=== PATIENT | male | born 1990 | race Hispanic/Latino ===

== ENCOUNTER 2018-01-09 18:19 | Emergency (ER) | payer BC ==
[~2018-01-09] VITALS: Ht 170.2 cm; Wt 98.9 kg
[2018-01-09] MEDS ORDERED: SODIUM CHLORIDE 0.9% 1000ML 1,000 ML ONE (19:15)
[2018-01-09] MEDS ORDERED: ONDANSETRON HCL 4 MG ORAL DISINTEGRATING TAB PO ONE (19:15)
[2018-01-09 21:12] VITALS: BP 115/60
== END 2018-01-09 20:40 | disposition home or self-care (01) ==
LOC: FSED 18:19
DX: R11.2 Nausea with vomiting, unspecified (principal); T67.2XXA Heat cramp, initial encounter; T67.3XXA Heat exhaustion, anhydrotic, initial encounter
CPT/HCPCS: 80053; 85025; 99283; J7030

== ENCOUNTER 2018-08-11 16:52 | Emergency (ER) | payer BC ==
[~2018-08-11] VITALS: Ht 170.2 cm; Wt 93.0 kg
--- OUTSIDE RECORDS SUMMARY | 2018-08-11 16:55 | XMS REPORT | Continuity of Care Document ---
Author Author [facility] Interface Address Unknown Phone Unavailable Problems Problem Status Onset Date Classification Date Reported Comments Source Body mass index 30+ - obesity 10/24/2017 Diagnosis 10/24/2017 [facility] Elevated blood-pressure reading without diagnosis of hypertension 10/24/2017 Diagnosis 10/24/2017 [facility] Gastroenteritis 10/24/2017 Diagnosis 10/24/2017 [facility] Headache 03/31/2017 Diagnosis 04/03/2017 [facility] Medications Medication Details Route Status Patient Instructions Ordering Provider Order Date Source Ondansetron 4 MG Disintegrating Oral Tablet ondansetron 4 mg disintegrating tablet Take 2 tablets every 8 hours by oral route as needed for 2 days. Active [facility] Hyoscyamine Sulfate 0.125 MG Sublingual Tablet [Levsin] Levsin/SL 0.[address] 1 tablet every 4 hours by sublingual route as needed for 2 days. Active [facility] Ondansetron 8 MG Oral Tablet ondansetron HCl 8 mg tablet Take 1 tablet every 8 hours by oral route as needed for 2 days. Active [facility] Allergies, Adverse Reactions, Alerts Substance Category Reaction Severity Reaction type Status Date Reported Comments Source Immunizations Immunization Date Given Site Status Last Updated Comments Source Results Order Name Results Value Reference Range Date Interpretation Comments Source Influenza A negative 04/03/2017 [facility] Influenza B negative 04/03/2017 [facility] Influenza A negative 03/31/2017 [facility] Influenza B negative 03/31/2017 [facility] Vital Signs Vital Sign Value Date Comments Source Diastolic (mm Hg) 78 10/24/2017 [facility] Height 67 10/24/2017 [facility] Systolic (mm Hg) 122 10/24/2017 [facility] Weight 220 10/24/2017 [facility] Diastolic (mm Hg) 74 04/03/2017 [facility] Height 67 04/03/2017 [facility] Systolic (mm Hg) 120 04/03/2017 [facility] Weight 235 04/03/2017 [facility] Diastolic (mm Hg) 74 03/31/2017 [facility] Height 67 03/31/2017 [facility] Systolic (mm Hg) 122 03/31/2017 [facility] Weight 235 03/31/2017 [facility] Encounters Location Location Details Encounter Type Encounter Number Reason For Visit Attending Provider ADM Date DC Date Status Source [place] - [facility] - [id number] Olsen, COMPUTER SYSTEMS SUPPORT SPECIALIST-C: [address] [place] [address], Ph. [id number] Enriqueta Olsen 03/31/2017 [facility] [place] [facility] - [id number] Olsen, COMPUTER SYSTEMS SUPPORT SPECIALIST-C: [address] [place] [address], Ph. [id number] Enriqueta Olsen 03/31/2017 [facility] [place] [facility] - [id number] Olsen, COMPUTER SYSTEMS SUPPORT SPECIALIST-C: [address] [place] [address], Ph. [id number] Enriqueta Olsen 04/03/2017 [facility] [place] [facility] - [id number] Vera Rozina, CLINICAL OPERATIONS MANAGER: [address] [place] [address], Ph. [id number] Lily Handy 10/24/2017 [facility] Procedures Procedure Code Date Perfomer Comments Source
--- OUTSIDE RECORDS SUMMARY | 2018-08-11 16:55 | XMS REPORT | Encounter Summary ---
Author Organization Unknown Address [address] [place] [address] Phone [phone] Reason for Visit Medical Complaint Instructions 1. Gastroenteritis gastroenteritis: care instructions Levsin/SL 0.125 mg sublingual tablet ondansetron HCl 8 mg tablet rapid flu (A+B) 2. Headache headache: care instructions 3. Body mass index 30+ - obesity Discussion Note Pt is in NAD; Verbalizes understanding of all instructions with no questions at this time. Plan of Care Patient Instructions Stay hydrated, eat a liquid diet for the first four hours. Stay away from fried and spicy foods until symptoms resolve. If you do experience improvement in your symptoms within the next four hours, advance yourself to a carbohydrate-rich diet such as white rice, white bread, and crackers. Within the next four hours thereafter, you can advance to lean meats such as chicken, fish, and turkey. Four hours thereafter if symptoms do improve, then advance to a regular diet. Take ondansetron for nausea and vomiting and levsin for stomach pain/cramps. Follow up with your PCP within 2-3 should symptoms worsen as discussed. In case of an emergency call 911 or go to nearest ER. Reminders Provider Appointments None recorded. Lab Rapid Flu (A+B) 03/31/2017 [facility] Referral None recorded. Procedures None recorded. Surgeries None recorded. Imaging None recorded. Medications Name Start Date Levsin/SL 0.[address] 1 tablet every 4 hours by sublingual route as needed for 2 days. ondansetron HCl 8 mg tablet Take 1 tablet every 8 hours by oral route as needed for 2 days. Medications Administered None recorded. Vitals Height Weight BMI Blood Pressure 5 ft 7 in 235 lbs 36.8 kg/m2 122/74 mm[Hg] Lab Results Date Name Specimen Result Interpretation Description Value Range Status Address Rapid Flu (A+B) Influenza a negative [facility]: [address] [place] [address] Influenza B negative [facility]: [address] [place] [address] Allergies Code Code System Name Reaction Severity Status Onset NKDA Problems None recorded. Procedures None recorded. Vaccine List None recorded. Social History Smoking Status Never Smoker Past Encounters 03/31/2017 Gastroenteritis; Headache; Body Mass Index 30+ - Obesity Enriqueta Olsen, [facility]-C: [address] [facility], [place] [address], Ph. History of Present Illness Sudwpo-Ramxryxx-Luzyglzv / Abdominal Pain Reported By: Patient HPI: Quality: intermittent. Severity: moderate. Duration: present for < 1 week, symptoms last for how long?. Onset/Timing: worse with meals, gradual onset, 1-3 times a day. Context: no one else with similar symptoms, no recent camping, no recent picnic, no possible food sources, no recent travel. Alleviating factors: better with fasting. Aggravating factors: eating. Associated Symptoms: no excess gas, no fever/chills, no rash, no joint pain, no weight loss, no heartburn, no blood in stool, no mucus in stool, no black or tarry stools, no weakness, no nutrient deficiency, no feeling of fullness/mass in throat, no muscle aches, no bitter taste in the mouth, no difficulty swallowing (dysphagia), abdominal pain, nausea, vomiting, cramping, bloating, headache Headache Reported By: Patient HPI: Location: frontal. Quality: dull. Severity: mild, pain level 2/10. Duration: intermittent. Onset/Timing: better, gradual. Context: not related to trauma. Modifying factors: OTC medication, sleep, rest. Associated Symptoms: no fever/chills, no muscle aches, no sensitivity to light, tearing/watery eyes, no confusion, no slurred speech, no preceeding aura, no double vision, normal feeling/sensation, no motor paralysis, no dizziness, no sleep disturbances, no nosebleeds, no hoarseness, no sore throat, no hearing loss, headache, nausea, vomiting; stomach pain Review of Systems:ROS as noted in the HPI Review of Systems Basic Reported By: Patient Physical Exam Adult Basic, Adult Female Complete, Adult Male Complete Reported By: Patient Constitutional: General Appearance: obese. Level of Distress: NAD. Ambulation: ambulating normally Psychiatric: Mental Status: active and alert. Orientation: to time, to place, to person Eyes: Lids and Conjunctivae: non-injected, no discharge, no pallor. Pupils: PERRLA. Corneas: grossly intact. EOM: EOMI. Lens: clear. Vision: peripheral vision grossly intact Csj-Lyae-Bvfcn-Throat: Nose: no lesions on external nose, nares patent, no septal deviation, nasal passages clear, no sinus tenderness, nasal discharge--rhinorrhea. Lips, Teeth, and Gums: no mouth or lip ulcers, no bleedin g gums, normal dentition. Oropharynx: moist mucous membranes, no erythema, no exudates, tonsils not enlarged Neck: Neck: supple. Lymph Nodes: no cervical LAD Lungs: Respiratory effort: no dyspnea, no tachypnea, no use of accessory muscles, no intercostal retractions. Auscultation: breath sounds normal, good air movement Cardiovascular: Heart Auscultation: RRR, no murmurs Neurologic: Gait and Station: normal gait, normal station. Cranial Nerves: grossly intact. Reflexes: DTRs 2+ bilaterally throughout Abdomen: Bowel Sounds: high-pitched. Inspection and Palpation: soft, non-distended, no tenderness, no guarding, no rebound tenderness, no masses, no CVA tenderness. Liver: non-tender, no hepatomegaly. Spleen: non-tender, no splenomegaly. Hernia: none palpable
--- OUTSIDE RECORDS SUMMARY | 2018-08-11 16:55 | XMS REPORT | Encounter Summary ---
Author Organization Unknown Address [address] [place] [address] Phone [phone] Reason for Visit Medical Complaint Instructions 1. Gastroenteritis gastroenteritis: care instructions Discussion Note Pt is in NAD; Verbalizes [...] then advance to a regular diet. Take over the counter imodium for diarrhea as per package insert. Follow up with a PCP within 2-3 should symptoms worsen as discussed. In case of an emergency call 911 or go to nearest ER. Reminders Provider Appointments None recorded. Lab None recorded. Referral None recorded. Procedures None recorded. Surgeries [...] ft 7 in 235 lbs 36.8 kg/m2 120/74 mm[Hg] Lab Results Date Name Specimen Result Interpretation Description Value Range Status Address Rapid Flu (A+B) Influenza a negative [facility]: [address] [place] [address] Influenza B negative [facility]: [address] [place] [address] Allergies Code Code System Name Reaction Severity Status Onset NKDA Problems None recorded. Procedures None recorded. Vaccine List None recorded. Social History Smoking Status Never Smoker Past Encounters 04/03/2017 Gastroenteritis [facility] Stevenson-C: [address] [place] [address], Ph. 03/31/2017 Gastroenteritis; Headache; Body Mass Index 30+ - Obesity Enriqueta Olsen, [facility]-C: [address] [place] [address], Ph. History of Present Illness Daovse-Rnzkbvlm-Qtqhqyvi / Abdominal Pain Reported By: Patient HPI: Quality: watery, intermittent. Severity: mild. Duration: present for < 1 week, symptoms last for how long?. Onset/Timing: worse with meals, gradual onset, 1-3 times a day. Context: no one else with similar symptoms, no recent camping, no recent picnic, no possible food sources, no recent travel; Pt presented on 03/31/17 with nausea, vomiting, stomach pain, and headache but these have resolved per pt. Last influenza test on 03/31/17 was negative. Alleviating factors: better with fasting. Aggravating factors: eating. Associated Symptoms: no abdominal pain, no excess gas, no fever/chills, no rash, no joint pain, no weight loss, no nausea, no vomiting, no heartburn, no blood in stool, no mucus in stool, no black or tarry stools, no weakness, no nutrient deficiency, no feeling of fullness/mass in throat, no muscle aches, no bitter taste in the mouth, no difficulty swallowing (dysphagia); watery diarrhea Review of Systems:ROS as noted in the HPI Review of Systems Basic Reported By: Patient Physical Exam Adult Basic, Adult Female Complete, Adult Male Complete Reported By: Patient Constitutional: General Appearance: healthy-appearing, well-nourished, well-developed. Level of Distress: NAD. Ambulation: ambulating normally Psychiatric: Mental Status: active and alert. Orientation: to time, to place, to person Eyes: Lids and Conjunctivae: non-injected, no pallor Gsh-Yqve-Nczqm-Throat: Lips, Teeth, and Gums: no mouth or lip ulcers, no bleeding gums, normal dentition. Oropharynx: moist mucous membranes, no erythema, no exudates, tonsils not enlarged Neck: Neck: supple. Lymph Nodes: no cervical LAD Lungs: Respiratory effort: no dyspnea, no tachypnea, no use of accessory muscles, no intercostal retractions. Auscultation: breath sounds normal Cardiovascular: Heart Auscultation: RRR, no murmurs Abdomen: Bowel Sounds: normal. Inspection and Palpation: soft, non-distended, no tenderness, no guarding, no rebound tenderness, no masses, no CVA tenderness. Liver: non-tender, no hepatomegaly. Spleen: non-tender, no splenomegaly. Hernia: none palpable
--- OUTSIDE RECORDS SUMMARY | 2018-08-11 16:56 | XMS REPORT | Encounter Summary ---
Author Organization Unknown Address [address] [place] [address] Phone [phone] Reason for Visit Medical Complaint Instructions 1. Gastroenteritis gastroenteritis: care instructions ondansetron 4 mg disintegrating tablet 2. Elevated blood-pressure reading without diagnosis of hypertension elevated blood pressure: care instructions 3. Body mass index 30+ - obesity body mass index: care instructions A healthy lifestyle: care instructions Discussion Note: None recorded. Plan of Care Reminders Provider Appointments None recorded. Lab None recorded. Referral None recorded. Procedures None recorded. Surgeries None recorded. Imaging None recorded. Medications Name Start Date ondansetron 4 mg disintegrating tablet Take 2 tablets every 8 hours by oral route as needed for 2 days. Medications Administered None recorded. Vitals Height Weight BMI Blood Pressure 5 ft 7 in 220 lbs 34.5 kg/m2 122/78 mm[Hg] Lab Results None recorded. Allergies Code Code System Name Reaction Severity Status Onset NKDA Problems None recorded. Procedures None recorded. Vaccine List None recorded. Social History Smoking Status Never Smoker Past Encounters 10/24/2017 Gastroenteritis; Elevated Blood-pressure Reading without Diagnosis of Hypertension; Body Mass Index 30+ - Obesity Lily Handy PUBLIC RELATIONS COORDINATOR: [address] [place] [address], Ph. History of Present Illness Akahkv-Vfrodofi-Uqzlbbxc / Abdominal Pain Reported By: Patient HPI: Quality: watery, frequent. Severity: causing awakening from sleep. Duration: present for < 1 week. Onset/Timing: worse in the morning, worse in the evening, worse in the afternoon, worse with meals, started after an event, abrupt onset, 4-10 times a day. Context: no one else with similar symptoms, no recent camping, no recent picnic, no recent travel, possible food source, bowel movement frequency:, last bowel movement:, no well water. Aggravating factors: eating. Associated Symptoms: no excess gas, no fever/chills, no rash, no joint pain, no weight loss, no blood in stool, no mucus in stool, no black or tarry stools, no weakness, no nutrient deficiency, no headache, no feeling of fullness/mass in throat, no muscle aches, no bitter taste in the mouth, no difficulty swallowing (dysphagia), abdominal pain, nausea, vomiting, cramping Review of Systems:ROS as noted in the HPI Review of Systems Basic Reported By: Patient Physical Exam Adult Male Complete Reported By: Patient Constitutional: General Appearance: obese. Level of Distress: mild distress. Ambulation: ambulating normally Psychiatric: Mental Status: active and alert. Orientation: to time, to place, to person Lungs: Respiratory effort: no dyspnea. Auscultation: breath sounds normal, good air movement Cardiovascular: Heart Auscultation: RRR, no murmurs. Pulses including femoral / pedal: normal throughout Abdomen: Bowel Sounds: normal. Inspection and Palpation: soft, no tenderness, no guarding, no rebound tenderness, no masses, no CVA tenderness Musculoskeletal:: Motor Strength and Tone: normal, normal tone. Joints, Bones, and Muscles: normal movement of all extremities
[2018-08-11] MEDS ORDERED: IBUPROFEN 600 MG TAB PO ONE (17:30)
== END 2018-08-11 17:32 | disposition home or self-care (01) ==
LOC: FSED 16:52
DX: R50.9 Fever, unspecified (principal); R05 Cough; J11.1 Influenza due to unidentified influenza virus with other respiratory manifestations
CPT/HCPCS: 87400; 99283

== ENCOUNTER 2020-03-31 09:45 | Emergency (ER) | payer BC ==
[~2020-03-31] VITALS: Ht 170.2 cm; Wt 80.5 kg
[2020-03-31] MEDS ORDERED: PREDNISONE20 MG PO (11:09)
--- NOTE | 2020-03-31 11:09 | Emergency Department Note ---
History of Present Illnes History of Present Illness Chief Complaint: left ankle pain s/p inversion while playing basketball History of Present Illness This is a 29 year old male. was doing well prior to this. Historian: Patient Arrival Mode: Car History limited by: condition of the patient (normal) Photoengraver Required: No Onset (how long ago): hour(s) (1) Location: see above Quality: sharp Radiation: Reports non-radiation Severity: severe Onset quality: sudden Duration (how long): hour(s) (1) Timing of current episode: constant Progression: worsening Chronicity: new Context: Reports trauma/injury Relieving factors: rest Exacerbating factors: movement Associated symptoms: Reports denies other symptoms Treatments prior to arrival: none Past Medical/Family History Physician Review I have reviewed the patient's past medical and family history. Any updates have been documented here. Past Medical History Recent Fever: No Clinical Suspicion of Infectio: No New/Unexplained Change in Ment: No Past Medical History: None Past Surgical History: None Social History Smoking Cessation: Never Smoker Counseling Performed: No Alcohol Use: Social Any Illegal Drug Use: No TB Exposure/Symptoms: No Physically hurt or threatened: No Family History Family history of heart diseas: No Other Last Tetanus: UNK Any Pre-Existing Lines (PICC,: No Review of Systems Review of Systems Constitutional: Reports no symptoms EENTM: Reports no symptoms Cardiovascular: Reports no symptoms Respiratory: Reports no symptoms Gastrointestinal: Reports no symptoms Genitourinary: Reports no symptoms Musculoskeletal: Reports as per HPI Integumentary: Reports no symptoms Neurological: Reports no symptoms Psychological: Reports no symptoms Endocrine: Reports no symptoms Hematological/Lymphatic: Reports no symptoms Review of other systems: All other systems negative Physical Exam Related Data Allergies: Coded Allergies: No Known Allergies (Unverified , 01/09/18) Vital signs reviewed: Yes Physical Exam CONSTITUTIONAL Constitutional: Present well-developed, Present well-nourished HENT HENT: Present normocephalic, Present atraumatic, Present oropharynx clear/moist, Present nose normal HENT L/R: Present left ext ear normal, Present right ext ear normal EYES Eyes: Reports PERRL, Reports conjunctivae normal NECK Neck: Present ROM normal, Present supple PULMONARY Pulmonary: Present effort normal, Present breath sounds normal CARDIOVASCULAR Cardiovascular: Present regular rhythm, Present heart sounds normal, Present capillary refill normal, Present normal rate GASTROINTESTINAL Abdominal: Present soft, Present nontender, Present bowel sounds normal GENITOURINARY Genitourinary: Present exam deferred SKIN Skin: Present warm, Present dry MUSCULOSKELETAL Musculoskeletal: Present ROM normal, Present tenderness (left ankle), Present swelling (mild), Present other (+nvi) NEUROLOGICAL Neurological: Present alert, Present oriented x 3, Present no gross motor or sensory deficits PSYCHOLOGICAL Psychological: Present mood/affect normal, Present judgement normal Results Imaging Imaging results reviewed: Yes Impressions [place] [address] Patient Name: DELMA GAN MR #: [id number] : 1990 Age/Sex: 29/M Req #: [id number] Adm Physician: Ordered by: RAÚL WEINSTEIN Report #: [id number] Location: [facility] Room/Bed: Procedure: [id number] HOPD/ANKLE 3VIEW LT - HOPD Exam Date: 03/31/20 Exam Time: 1043 REPORT STATUS: Signed ANKLE 3VIEW LT - HOPD - 3 views HISTORY: Pain. COMPARISON: None available. FINDINGS: Bones/joints: No acute fracture or dislocation. No ankle joint effusion. Soft tissues: No focal soft tissue abnormality. IMPRESSION: No acute radiographic abnormality. Signed by: Jeff Brown MD on 03/31/2020 11:22 AM Dictated By: JEFF BROWN MD 21 Transcribed By: PEDRO on 03/31/201121 COPY TO: RAÚL WEINSTEIN~ Assessment & Plan Medical Decision Making MDM see below Assessment & Plan Final Impression: (1) Ankle sprain Depart Disposition: HOME, SELF-correction Meds Active Scripts Prednisone (PREDNISONE) 20 Mg Tab, 60 MG PO DAILY PRN for MODERATE PAIN (4-6), #15 TAB TAKE ALL 3 20 MG PILLS AT ONCE Prov:RAÚL WEINSTEIN 03/31/20 RAÚL WEINSTEIN Mar 31, 2020 11:09
[2020-03-31 11:21] VITALS: BP 121/59
--- NOTE | 2020-03-31 11:25 | Diagnostic Imaging Report ---
ANKLE 3VIEW LT - HOPD - 3 views HISTORY: Pain. COMPARISON: None available. FINDINGS: Bones/joints: No acute fracture or dislocation. No ankle joint effusion. Soft tissues: No focal soft tissue abnormality. IMPRESSION: No acute radiographic abnormality. Signed by: Sarah Mckinnon MD on 03/31/2020 11:22 AM
--- OUTSIDE RECORDS SUMMARY | 2020-04-05 18:20 | XMS REPORT | Continuity of Care Document ---
Author Author [facility] t Organization [facility] Address [address] [place] [address] Phone Unavailable Care Team Providers Care Nut Feeder Name Role Phone NO, PCP PCP Unavailable Vincenzo WEINSTEIN Attphys Unavailable Payers Payer Name Policy Type Policy Number Effective Date Expiration Date S michel [employer] [place] Ppo [id number] 2018 00:00:00 [facility] Problems This patient has no known problems. Allergies, Adverse Reactions, Alerts This patient has no known allergies or adverse reactions. Medications This patient has no known medications. Procedures This patient has no known procedures. Encounters Start Date/Time End Date/Time [facility] Type [facility] En[facility] ID Source 2019-05-23 22:00:00 2019-05-23 23:00:00 Departed Emergency Room [facility] [id number] [facility] 2019-01-19 15:29:00 2019-01-19 15:29:00 Emergency E [id number] 2018-08-11 16:52:00 2018-08-11 17:32:00 Departed Emergency Room [facility] [id number] [facility] 2018-01-09 18:19:00 2018-01-09 20:40:00 Departed Emergency Room [facility] [id number] [facility] Results Test Description Test Time Test Comments Results Result Comments Source [facility] 11:20:00 [facility] 1990 Sex: M [facility] [address] [address] Patient Name: DELMA GAN MR #: [id number] : 1990 Age/Sex: 29/M Req #: [id number] [facility] Physician: Ordered by: RAÚL WEINSTEIN Report #: [id number] Location: [facility] Room/Bed: Procedure: [id number] HOPD/ANKLE 3VIEW LT - HOPD Exam Date: 03/31/20 Exam Time: 1043 REPORT STATUS: Signed ANKLE 3VIEW LT - HOPD - 3 views HISTORY: Pain. COMPARISON: None available. FINDINGS: Bones/joints: No acute fracture or dislocation. No ankle joint effusion. Soft tissues: No focal soft tissue abnormality. IMPRESSION: No acute radiographic abnormality. Signed by: Jeff Brown MD on 03/31/2020 11:22 AM Dictated By: JEFF BROWN MD 21 Transcribed By: PEDRO on 03/31/201121 COPY TO: RAÚL WEINSTEIN
== END 2020-03-31 11:48 | disposition home or self-care (01) ==
LOC: FSED 09:58
DX: S93.402A Sprain of unspecified ligament of left ankle, initial encounter (principal); X50.1XXA Overexertion from prolonged static or awkward postures, initial encounter; Y93.67 Activity, basketball; Y92.310 Basketball court as the place of occurrence of the external cause
CPT/HCPCS: 99283

== ENCOUNTER 2021-02-19 10:27 | Emergency (ER) | payer SELFPAY ==
[~2021-02-19] VITALS: Ht 172.7 cm; Wt 84.9 kg
[~2021-02-19 10:27] MED LIST: PREDNISONE20 MG PO
[2021-02-19] MEDS ORDERED: AUGMENTIN 500-1 EACH PO (11:24)
[2021-02-19] MEDS ORDERED: MAXITROL EYE O3.5 GM OD (11:24)
== END 2021-02-19 11:45 | disposition home or self-care (01) ==
LOC: FSED 10:36
DX: H02.843 Edema of right eye, unspecified eyelid (principal); H01.002 Unspecified blepharitis right lower eyelid
CPT/HCPCS: 99282